=== PATIENT | female | born 1985 | race Caucasian/White ===

== ENCOUNTER 2021-12-06 10:04 | Outpatient (CLI) | payer OTHER, SELFPAY ==
[2021-12-06 16:19] LABS: Complement C3 101 mg/dL (88-165); Rheumatoid Factor < 8.6 IU/ML (<12)
[2021-12-06 16:41] LABS: Free T4 Free Thyroxine 0.96 ng/mL (0.78-2.19)
[2021-12-06 20:20] LABS: Vitamin D 25 Hydroxy 28.9 ng/mL
[2021-12-08 20:47] LABS: Lupus dRVVT 1:1 Mix Interpreta Not Indicated; Lupus dRVVT Screen 35 sec (<=45); PTT-LA Screen 35 sec (<=40)
[2021-12-08 22:30] LABS: Anti Cyclic Citrullinated Pept <16 Units (<20)
[2021-12-09 03:21] LABS: Thyroid Peroxidase Antibodies 1 IU/mL (<9)
[2021-12-09 06:43] LABS: Triiodothyronine T3 Free 2.9 pg/mL (2.3-4.2)
[2021-12-09 14:07] LABS: Thyroid Stimulating Immunoglob <89 % baseline (<140)
[2021-12-09 22:29] LABS: SM Antibody <1.0; SM/RNP Antibody <1.0; SS-A <1.0; SS-B <1.0
[2021-12-11 12:54] LABS: ANCA Screen Negative (Negative); Myeloperoxidase Ab <1.0 AI (<1.0); Proteinase-3 Ab <1.0 AI (<1.0); S cerevisiae Ab (IgA) 6.9 U (<=20.0); S cerevisiae Ab (IgG) 26.2 U (<=20.0)
== END 2021-12-06 10:05 | disposition home or self-care (01) ==
LOC: ANHLAB 10:07
PROVIDERS: PCP Nurse Practitioner Family; Visit Provider Internal Medicine
DX: E55.9 Vitamin D deficiency, unspecified (principal); M25.50 Pain in unspecified joint; R63.5 Abnormal weight gain; R76.8 Other specified abnormal immunological findings in serum; M19.90 Unspecified osteoarthritis, unspecified site
CPT/HCPCS: 36415; 82306; 84439; 84445; 84481; 85613; 85730; 86036; 86160; 86200; 86225; 86235; 86376; 86430; 86671

== ENCOUNTER 2021-12-20 09:34 | Outpatient (CLI) | payer OTHER, SELFPAY ==
[2021-12-20 13:07] LABS: Alanine Aminotransferase 26 U/L (4-35); Albumin Level 4.6 g/dL (3.5-5.1); Alkaline Phosphatase 75 U/L (38-126); Anion Gap 5 mmol/L (8-16); Aspartate Amino Transferase 43 U/L (14-36); Basophils Percent Auto 0.5 % (0.2-1.2); Bilirubin,Total 0.3 mg/dL (0.2-1.3); Blood Urea Nitrogen 17 mg/dL (7-17); Calcium 9.4 mg/dL (8.4-10.2); Carbon Dioxide 31 mmol/L (22-30); Chloride 102 mmol/L (98-107); Cholesterol 266 mg/dL (0-200); Eosinophils Absolute Auto 0.2 K/mm3 (0-0.3); Eosinophils Percent Auto 1.7 % (0-4.4); Estimated Glomerular Filt Rate 43; Glucose 94 mg/dL (65-110); HDL Direct 68 mg/dL; Hematocrit 42.9 % (37.0-47.0); Hemoglobin 14.3 g/dL (12.0-15.0); Immature Granulocyte Absolute 0.02 K/mm3 (0.00-0.031); Immature Granulocyte Percent A 0.2 % (0-0.5); Lymphocytes Absolute Auto 2.27 K/mm3 (0.9-3.2); Lymphocytes Percent Auto 26.1 % (18.3-44.2); Mean Corpuscular HGB Conc 33.3 g/dl (32-36); Mean Corpuscular Hemoglobin 29.1 pg (26-34); Mean Corpuscular Volume 87.4 fl (80-100); Mean Platelet Volume 9.4 fl (7.4-10.4); Monocytes Absolute Auto 0.8 K/mm3 (0.1-0.6); Monocytes Percent Auto 9.7 % (2.6-8.5); Neutrophils Absolute Auto 5.4 K/mm3 (1.3-6.7); Neutrophils Percent Auto 61.8 % (45.5-73.1); Platelet Count Result 404 k/mm3 (150-375); Potassium 4.4 mmol/L (3.4-5.0); Red Blood Count 4.91 M/mm3 (4.2-5.4); Red Cell Distribution Width 12.6 % (11.5-14.5); Sodium 138 mmol/L (137-145); Triglycerides 111 mg/dL (<150); White Blood Count 8.7 K/mm3 (4.5-10.0)
[2021-12-20 13:08] LABS: Iron 87 ug/dL (37-170)
[2021-12-20 13:18] LABS: LDL Cholesterol Direct 149 mg/dL; Percent Iron Saturation 21 % (20-50)
[2021-12-28 10:33] LABS: Z Score Female -0.3 SD (-2.0 - +2.0)
== END 2021-12-20 09:35 | disposition home or self-care (01) ==
LOC: ANHWCLAB 09:39
PROVIDERS: PCP Nurse Practitioner Family; Visit Provider Internal Medicine Endocrinology, Diabetes & Metabolism
DX: R63.5 Abnormal weight gain (principal); R73.09 Other abnormal glucose; L65.9 Nonscarring hair loss, unspecified; R53.83 Other fatigue
CPT/HCPCS: 36415; 80053; 80061; 82728; 83036; 83540; 83550; 84305; 85025

== ENCOUNTER 2021-12-21 08:53 | Outpatient (NON) | payer OTHER, SELFPAY ==
[2021-12-27 16:53] LABS: Cortisol, Saliva <0.03 mcg/dL
== END 2021-12-21 08:54 | disposition home or self-care (01) ==
PROVIDERS: PCP Nurse Practitioner Family; Visit Provider Internal Medicine Endocrinology, Diabetes & Metabolism
DX: R63.5 Abnormal weight gain (principal)
CPT/HCPCS: 82530

== ENCOUNTER 2021-12-23 09:22 | Outpatient (NON) | payer OTHER, SELFPAY ==
[2021-12-30 12:32] LABS: Cortisol, Saliva <0.03 mcg/dL
== END 2021-12-23 09:23 | disposition home or self-care (01) ==
PROVIDERS: PCP Nurse Practitioner Family; Visit Provider Internal Medicine Endocrinology, Diabetes & Metabolism
DX: R63.5 Abnormal weight gain (principal)
CPT/HCPCS: 82530